=== PATIENT | male | born 1985 | race Caucasian/White ===

== ENCOUNTER → 2016-12-04 | Outpatient (CLI) | payer BC ==
--- NOTE | 2016-12-05 09:29 | DIAGNOSTIC IMAGING REPORT ---
MRI OF THE RIGHT KNEE WITHOUT CONTRAST CLINICAL HISTORY: Lateral right knee pain. COMPARISON STUDY: Right knee radiographs December 03, 2016. TECHNIQUE: Utilizing a 1.5 Vickie magnet and dedicated coil, multiplanar, multiecho imaging of the right knee was performed without intravenous or intraarticular contrast. FINDINGS: Alignment of the right knee is anatomic. There is a large right knee joint effusion. No loose bodies are identified. There is no fracture. There is no significant marrow edema or marrow replacement. The cruciate and collateral ligaments are intact. There is no tear of the medial meniscus. There is a complex tear of the body, posterior horn and anterior horn of the lateral meniscus with an anteriorly flipped fragment. This suggests a bucket-handle tear. There is minimal chondrosis within the medial femoral condyle. There is minimal chondrosis of the trochlear cartilage. Extensor mechanism is intact. IMPRESSION: 1. Complex tear of the lateral meniscus within anteriorly flipped fragment suggestive of a bucket-handle tear. 2. Large right knee joint effusion. 3. Intact cruciate and collateral ligaments. Electronically signed by: Stanislaw Peña M.D. 12/05/2016 9:28 AM Dictated Date/Time: 12/04/2016 8:11 PM
== END | disposition home or self-care (01) ==
LOC: C.MRI 18:19
PROVIDERS: ATTEND Family Medicine
DX: S83.271A Complex tear of lateral meniscus, current injury, right knee, initial encounter (principal); X58.XXXA Exposure to other specified factors, initial encounter; M25.561 Pain in right knee